=== PATIENT | male | born 1955 | race Caucasian/White ===

== ENCOUNTER 2017-07-13 07:55 | Day surgery (SDC) | payer BC ==
--- NOTE | 2017-07-07 15:06 | HP ---
PREOPERATIVE HISTORY AND PHYSICAL: DATE OF SURGERY/ADMISSION: 07/13/17 [facility] DATE OF OFFICE VISIT/ENCOUNTER: 07/05/17 ATTENDING SURGEON: Anamaria Fulton MD * (DICTATED BY EBENEZER SOTOMAYOR) PROCEDURE: Left ring finger excision mass. CHIEF COMPLAINT: Left ring finger cyst. HISTORY OF PRESENT ILLNESS: This is a 61-year-old male who has a lump on the dorsal aspect of his left ring finger that has been present for 6 months. He has punctured it several times, but it keeps recurring. He has only mild pain. He has obvious degenerative changes in all of his DIP joints. This did not limit his ability to use the hand. He is employed in [employer]. He denies any associated numbness and tingling and denies any specific injury. He would like to have the cyst surgically removed. The patient is currently being treated for hepatitis C. PAST MEDICAL HISTORY: 1. Hepatitis C. 2. History of polio as a child. PAST SURGICAL HISTORY: 1. Tonsillectomy. 2. Appendectomy. CURRENT MEDICATIONS: Harvoni 90/400 mg 1 tab daily. ALLERGIES: No known drug allergies. FAMILY MEDICAL HISTORY: Cardiac disease. SOCIAL HISTORY: The patient is employed in [employer]. He is a former smoker. He quit approximately 7 to 8 years ago. Prior to that, he smoked up to a half a pack a day and did so for 10 years. He does admit current recreational drug use. He smokes marijuana. He also drinks alcohol on occasion. REVIEW OF SYSTEMS: General: Negative for fevers, chills, or night sweats. No known anesthesia problems. HEENT: Negative for headache, lightheadedness, or syncopal episodes. Integumentary: Negative for abrasions, lesions, or open wounds. Cardiothoracic: Negative for hypertension, chest pain, palpitations, or edema. Pulmonary: Negative for shortness of breath with exertion, chronic cough, COPD. GI: Negative for nausea, vomiting, diarrhea, constipation, or GERD. : Negative for nocturia, urinary frequency, urgency, history of UTIs, or kidney problems. Musculoskeletal: Positive for current complaint. Negative for chronic or intermittent back pain or history of fractures. Neurologic: Negative for paresthesias, numbness, history of seizures, stroke or epilepsy. Endocrine: Negative for diabetes or thyroid issues. Hematologic: Negative for easy bruising, anemia, excessive bleeding, or history of DVT. Infectious Disease: Positive for hepatitis C. Negative for history of MRSA or HIV. PHYSICAL EXAMINATION GENERAL: Well-developed, well-nourished 61-year-old male in no acute distress. VITAL SIGNS: Height 6 feet tall, weight 180 pounds, pulse rate 74, blood pressure 138/82. HEENT: Normocephalic, atraumatic. Pupils are equal, round and reactive to light and accommodation. Extraocular movements are intact. NECK: Supple. No palpable lymph nodes. Throat is clear. PULMONARY: Lungs are clear to auscultation bilaterally. No wheezes, rales, or rhonchi. CARDIOVASCULAR: Regular rate and rhythm. S1, S2. No murmurs, rubs, or gallops. No edema. ABDOMEN: Positive bowel sounds, soft, nontender. NEUROLOGICAL: Alert and oriented x3. Cranial nerves II through XII are intact. Sensation is intact to light touch. MUSCULOSKELETAL: On exam of his left hand, he has a cystic mass just proximal to the fingernail of his left ring finger. Skin is healthy. He has obvious degenerative changes of all of his DIP joints. He has active flexion and extension of the ring finger DIP joint, but it is limited to about 30 to 40 degrees. There is no drainage. Skin is intact. Neurovascular function is intact. 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 IMPRESSION: Mucous cyst, left ring finger with underlying osteoarthritis. PLAN: The patient is scheduled to undergo a left ring finger excision mass with Dr. Fulton on 07/13/17. He will return to the office in 10 to 14 days postop for followup and suture removal. He will likely be prescribed pain medication day of surgery. We were awaiting to prescribe until obtaining a recommendation from his primary care physician who is treating him for hepatitis C. EBENEZER SOTOMAYOR [id number]/CPS #: [id number] MTDD
[~2017-07-13 07:55] MED LIST: Buffered Lidocaine 0.9% SYRIN* 5 ML/SYR SYRINGE INTRADERM ONE
[2017-07-13] MEDS ORDERED: Lidocaine 1% INJ* 10 MG/ML 30 ML SDV ONE (09:34)
[2017-07-13] MEDS ORDERED: fentaNYL* 50 MCG/ML 2 ML VIAL (100 MCG VIAL) ONE (09:40)
[2017-07-13] MEDS ORDERED: Midazolam* 1 MG/ML 2 ML VIAL (2 MG) ONE (09:40)
[2017-07-13] MEDS ORDERED: Lidocaine 2% PF * 5 ML VIAL ONE (09:41)
[2017-07-13] MEDS ORDERED: Propofol* 10 MG/ML 20 ML BTL IV PUSH ONE (09:41)
[2017-07-13 10:37] VITALS: BP 118/85
--- NOTE | 2017-07-14 01:30 | OP ---
DATE OF OPERATION: 07/13/17 [facility] DATE OF : 53 SURGEON: Anamaria Fulton MD EMBROIDERY OPERATOR: EBENEZER [place] ANESTHESIA: Local MAC. PRE-OP DIAGNOSIS: Left ring finger mass. POST-OP DIAGNOSIS: Left ring finger mass. OPERATIVE PROCEDURE: Removal, left ring finger mass. INDICATIONS: Anthony is a 61-year-old man who has a painful mass on the dorsal aspect of his left ring finger just proximal to the finger nail, which is causing a finger nail deformity and skin irritation and rupture. He presents for removal of the mass, which is presumably a mucous cyst. ESTIMATED BLOOD LOSS: Zero. TOURNIQUET TIME: About 15 minutes. DESCRIPTION OF PROCEDURE: The patient was brought to the operating room, was given a sedation anesthetic and a digital block with total of 20 cc of 1% plain lidocaine. The skin of his left hand and forearm was prepped and draped in the usual sterile fashion. The hand and forearm were exsanguinated and the tourniquet elevated to 250 mmHg. An H-shaped incision was made centered over the DIP joint dorsal aspect of the left ring finger. The skin flaps were raised subcutaneous and the ganglion cyst was removed from over top of the nail bed and the extensor tendon. The extension of the cyst into the DIP joint was on the radial aspect of the DIP joint. The stalk of the cyst was removed and the either side of the extensor tendon was incised longitudinally and the underlying osteophytes were removed with the rongeur. The wound was irrigated and the skin edges were reapproximated with 4-0 nylon suture. The wound was dressed with Xeroform, 4x4, Webril and Coban. The patient tolerated the procedure well and was brought to the recovery room in good condition. [id number]/CPS #: [id number] MTDD
== END 2017-07-13 11:03 | disposition home or self-care (01) ==
LOC: OREAST 07:55
PROVIDERS: ATTEND Orthopaedic Surgery
DX: L72.0 Epidermal cyst (principal); Z87.891 Personal history of nicotine dependence; Z86.12 Personal history of poliomyelitis; Z86.19 Personal history of other infectious and parasitic diseases
CPT/HCPCS: 88304; J2250; J2704; J3010

== ENCOUNTER 2020-05-07 12:34 | Inpatient (IN) ==
[~2020-05-07 12:34] MED LIST changes: -Buffered Lidocaine 0.9% SYRIN* 5 ML/SYR SYRINGE INTRADERM ONE; +Buffered Lidocaine 1% SYRIN 1 ml INTRADERM ONE; +Lactated Ringers 1000 ml BAG 1,000 ML IV SCH
[2020-05-07] MEDS ORDERED: ceFAZolin 2 GM PREMIX 2 GM/50 ML BAG ONE (13:18)
[2020-05-07] MEDS ORDERED: Lidocaine 2% PF 5 ML VIAL ONE ×2 (13:35→14:06)
[2020-05-07] MEDS ORDERED: ROPIVACAINE 5 MG/ML 30 ML BTL (0.5%) ONE ×2 (13:35→16:28)
[2020-05-07] MEDS ORDERED: Dexamethasone IV 4 MG/ML VIAL 1 ml VIAL ONE (13:39)
[2020-05-07] MEDS ORDERED: fentaNYL 100 mcg/2 ml 50 MCG/ML VIAL ONE ×2 (14:06→18:20)
[2020-05-07] MEDS ORDERED: Midazolam 2 mg/2 ml VIAL 1 mg/ml 2 ml VIAL (2 mg) ONE (14:06)
[2020-05-07] MEDS ORDERED: Magnesium Hydroxide LIQ 30 ML UDC PO PRN (16:06)
[2020-05-07] MEDS ORDERED: diPHENhydraMINE 25 mg TAB PO PRN (16:06)
[2020-05-07] MEDS ORDERED: diPHENhydraMINE IV 50 MG/ML 1 ml VIAL (BENADRYL) IV PRN (16:06)
[2020-05-07] MEDS ORDERED: Ondansetron 4 mg VIAL 2 MG/ML 2 ml VIAL IV PRN (16:06)
[2020-05-07] MEDS ORDERED: oxyCODONE/Acetamin 5/325 mg TAB PO PRN ×2 (16:06)
[2020-05-07] MEDS ORDERED: Morphine 2 MG/ML SYRINGE IV PRN (16:06)
[2020-05-07] MEDS ORDERED: Ondansetron ODT 4 mg TAB 4 MG TAB PO PRN (16:06)
[2020-05-07] MEDS ORDERED: Lactulose 30 ml UDC PO PRN (16:06)
[2020-05-07] MEDS ORDERED: diPHENhydraMINE IV 50 MG/ML 1 ml VIAL (BENADRYL) ONE (16:24)
[2020-05-07] MEDS ORDERED: EPHEDrine (Pressors) 50 MG/ML VIAL ONE ×2 (16:24)
[2020-05-07] MEDS ORDERED: DiMENhydriNATE IV 50 mg/ml 1 ml VIAL IV PUSH PRN (16:50)
[2020-05-07] MEDS ORDERED: Naloxone 0.4 mg VIAL 0.4 mg/ml 1 ml VIAL IV PRN (16:50)
[2020-05-07] MEDS ORDERED: fentaNYL 100 mcg/2 ml 50 MCG/ML VIAL IV PRN (16:50)
[2020-05-07] MEDS ORDERED: Ondansetron 4 mg VIAL 2 MG/ML 2 ml VIAL ONE (16:54)
[2020-05-07] MEDS: Lactated Ringers 1000 ml BAG 1,000 ML IV SCH (18:45)
[2020-05-07] MEDS: Magnesium Hydroxide LIQ 30 ML UDC PO SCH (21:59)
[2020-05-07] MEDS: ceFAZolin 1 GM ADVAN 1 GM in NS 0.9% 50 ML 50 ML IVPB SCH (23:29)
[2020-05-08] MEDS: Lactated Ringers 1000 ml BAG 1,000 ML IV SCH (05:48)
[2020-05-08 06:03] LABS: Hematocrit 38 % (42-52); Hemoglobin 12.9 g/dL (14.0-18.0); Mean Platelet Volume 8.1 fL (7.4-10.4); Platelet Count 232 10^3/uL (150-450)
[2020-05-08 06:19] LABS: BUN/Creatinine Ratio 24.3 (8-20); Calcium 8.5 mg/dL (8.6-10.3); EGFR African American 136.9 (>60); EGFR Non-African American 113.2 (>60); Potassium 4.1 mmol/L (3.5-5.0)
[2020-05-08] MEDS: ceFAZolin 1 GM ADVAN 1 GM in NS 0.9% 50 ML 50 ML IVPB SCH ×2 (07:23→15:19)
[2020-05-08] MEDS ORDERED: Vitamin THERAPEUTIC TAB PO SCH (09:00)
[2020-05-08] MEDS: Magnesium Hydroxide LIQ 30 ML UDC PO SCH (09:15)
[2020-05-08] MEDS ORDERED: NS 0.9% 50 ML 50 ML ONE (15:09)
[2020-05-08 15:43] VITALS: BP 116/57
[2020-06-11] MEDS ORDERED: Scopolamine PATCH Remove NOTE PATCH OFF SCH (11:00)
== END 2020-05-08 17:05 | disposition home or self-care (01) | DRG 470 ==
LOC: AA 12:34 → SSU 18:54
PROVIDERS: ADMIT Orthopaedic Surgery Adult Reconstructive Orthopaedic Surgery; ATTEND Orthopaedic Surgery Adult Reconstructive Orthopaedic Surgery